=== PATIENT | male | born 1960 | race Caucasian/White ===

== ENCOUNTER 2019-10-30 17:52 | Emergency (ER) | payer BC ==
[2019-10-30] MEDS ORDERED: Ticagrelor 90 MG Tab PO ONE (18:04)
[2019-10-30] MEDS ORDERED: Famotidine 20 MG/2 ML SDV IVPUSH ONE (18:04)
[2019-10-30] MEDS ORDERED: Aspirin 81 MG Tab.Chew CHEW ONE (18:04)
--- NOTE | 2019-10-30 18:04 | EDM.PDOC ---
ED HPI GENERAL MEDICAL PROBLEM - General Chief Complaint: Cardiovascular Problem Stated Complaint: chest pressure Time Seen by Provider: 10/30/19 18:00 Source of Information: Reports: Patient, Family (), Old Records ([facility] chart/EMR) History Limitations: Reports: No Limitations - History of Present Illness INITIAL COMMENTS - FREE TEXT/NARRATIVE: The patient was brought to the emergency room via private automobile by his for evaluation of 3/10 retrosternal chest pressure, which did wake him up from sleep at about 15:00 hours. He has not taken any medications for his symptoms to this point. He did feel some mild dizziness at about 04:00 A.M. this morning, however no chest pain at that time. The patient denies any heart flutter, orthostasis, orthopnea, diaphoresis, paresthesias, recent decreased exercise tolerance, or any other anginal-type symptoms. He denies any radiation of his chest discomfort. No recent history of abdominal pain, heartburn, nausea, diarrhea, melena, gross hematochezia, or any food intolerance, including fatty foods, etc.. The patient also denies any recent fever, cough, wheezing, dyspnea, etc.. Onset: Today, Sudden Onset Date: 10/30/19 Onset Time: 15:00 Duration: Constant Location: Reports: Chest. Denies: Head, Face, Neck, Abdomen, Back, Pelvis, Upper Extremity, Left, Upper Extremity, Right, Radiates to Quality: Reports: Pressure Severity: Mild Improves with: Reports: None Worsens with: Reports: None Context: Reports: Other (As above). Denies: Sick Contact, Trauma Associated Symptoms: Reports: Chest Pain. Denies: Confusion, Cough, Diaphoresis, Fever/Chills, Headaches, Loss of Appetite, Malaise, Nausea/Vomiting, Seizure, Shortness of Breath, Syncope, Weakness Treatments DEVELOPMENT INTERN: Reports: Other (see below) (None) Upper Chest Pain Score (Numeric/FACES): 3 - Related Data Allergies Allergy/AdvReac Type Severity Reaction Status Date / Time bacitracin Allergy Rash Verified 09/07/14 16:31 [From Neosporin ([id number])] bacitracin zinc Allergy Rash Verified 09/07/14 16:31 [From Neosporin ([id number])] neomycin sulfate Allergy Rash Verified 09/07/14 16:31 [From Neosporin ([id number])] polymyxin B Allergy Rash Verified 09/07/14 16:31 [From Neosporin ([id number])] Home Meds: Home Meds . [No Known Home Meds] 09/07/14 [History] Past Medical History HEENT History: Reports: None. Denies: Allergic Rhinitis, Cataract, Glaucoma, Hard of Hearing, Impaired Vision, Macular Degeneration, Otitis Media, Retinal Detachment Cardiovascular History: Reports: None, Other (See Below). Denies: Afib, Aneurysm, Arrhythmia, Blood Clots/VTE/DVT, CAD, Cardiomyopathy, Heart Failure, Heart Murmur, High Cholesterol, Hypertension, AZ, PVD, Syncope Other Cardiovascular History: He does not know his cholesterol status. Respiratory History: Reports: None. Denies: Asthma, Bronchitis, Recurrent, COPD, Intubation, Previous, PE, Pneumonia, Recurrent, Pneumothorax, Sleep Apnea, TB Gastrointestinal History: Reports: None. Denies: Celiac Disease, Cholelithiasis, Chronic Constipation, Chronic Diarrhea, Fecal Incontinence, Gastritis, GERD, GI Bleed, Hepatitis, Inflammatory Bowel Disease, Irritable Bowel Syndrome, Jaundice, Pancreatitis Genitourinary History: Reports: None. Denies: Acute Renal Failure, BPH, Chronic Renal Insuffiency, Renal Calculus, STD, Urinary Incontinence, UTI, Recurrent Musculoskeletal History: Reports: Fracture, Other (See Below). Denies: Arthritis, Back Pain, Chronic, Gout, Neck Pain, Chronic, Osteoarthritis, RA, SLE Other Musculoskeletal History: Comminuted left tibial and fibular fractures at age 20. Neurological History: Reports: None, Headaches, Chronic. Denies: Cerebral Aneurysms, Concussion, CVA, Head Trauma, Migraines, MS, Neuropathy, Peripheral, Parkinson's, Seizure, TIA Psychiatric History: Reports: None. Denies: Abuse, Victim of, ADD, ADHD, Addiction, Anxiety, Depression, Psych Hospitalization(s), PTSD, Suicide Attempt, Suicidal Ideation Endocrine/Metabolic History: Reports: Obesity/BMI 30+. Denies: Diabetes, Type I, Diabetes, Type II, Diabetes Mellitus, Type 3c, Hypothyroidism, IDDM Hematologic History: Reports: None. Denies: Anemia, Blood Transfusion(s), Iron Deficiency Immunologic History: Reports: None. Denies: AIDS, HIV, SLE Oncologic (Cancer) History: Reports: None. Denies: Basal Cell Carcinoma, Colon, Hodgkin's Lymphoma, Malignant Melanoma, Non-Hodgkin's Lymphoma, Prostate, Squamous Cell Carcinoma Dermatologic History: Reports: Eczema. Denies: Psoriasis - Infectious Disease History Infectious Disease History: Reports: Chicken Pox, Measles, Mumps. Denies: C- Difficile, Meningitis, Mononucleosis, MRSA, Pertussis (Whooping Cough), Rheumatic Fever, Rubella, Scarlet Fever, Shingles, TB, VRE - Past Surgical History Head Surgeries/Procedures: Reports: None HEENT Surgical History: Reports: Adenoidectomy, LASIK, Oral Surgery, Tonsillectomy, Other (See Below). Denies: Cataract Surgery, Eye Surgery, Laser Surgery, Myringotomy w Tube(s), Naso-Sinus Surgery Other HEENT Surgeries/Procedures: Tonsillectomy and adenoidectomy at about 25 years of age. Complete teeth extraction with complete dentures uppers and lowers. LASIK in 2018. Cardiovascular Surgical History: Reports: None. Denies: Varicose Respiratory Surgical History: Reports: None. Denies: Thoracentesis GI Surgical History: Reports: None. Denies: Appendectomy, Cholecystectomy, Colonoscopy, EGD, Hernia, Abdominal, Hernia, Inguinal, Hernia Repair/Other Male Surgical History: Reports: Circumcision, Vasectomy, Other (See Below) Other Male Surgeries/Procedures: Circumcision as an and vasectomy in about 2011. Endocrine Surgical History: Reports: None. Denies: Thyroid Biopsy Neurological Surgical History: Reports: None. Denies: C-Spine, Discectomy, Laminectomy, Lumbar Spine, Sacral Spine, Spinal Fusion, Thoracic Spine, Vertebroplasty Musculoskeletal Surgical History: Reports: Arthroscopic Procedure, Shoulder Surgery, Other (See Below). Denies: Carpal Tunnel, Ganglion Cyst, Joint Replacement, ORIF Other Musculoskeletal Surgeries/Procedures:: Arthroscopic rotator cuff repair of the left shoulder in about 2008. Oncologic Surgical History: Reports: None Dermatological Surgical History: Reports: None - Past Imaging History Past Imaging History: Reports: None. Denies: Angiography, Cardiac Echo, Holter Monitor, Stress Testing Social & Family History - Family History HEENT: Reports: None. Denies: Glaucoma, Macular Degeneration, Retinal Detachment Cardiac: Reports: CAD, AZ, Other (See Below). Denies: Afib, AICD, Aneurysm, Arrhythmia, Blood Clots/VTE/DVT, Cardiomyopathy, Heart Failure, Heart Murmur, High Cholesterol, Hypertension, PVD/COD, Syncope Other Cardiac Family History: Father with AZ in his 70s at time of upper GI bleed from stomach cancer. Respiratory: Reports: None. Denies: Asthma, COPD, PE, Pneumothorax, Sleep Apnea GI: Reports: GI bleed, Other (See Below). Denies: Celiac Disease, Cholelithiasis, Colon Polyps, Diverticulitis, GERD, Inflammatory Bowel Disease, Irritable Bowel Syndrome, PUD Other GI Family History: Father with GI bleed secondary to stomach cancer as above. : Reports: None. Denies: Dialysis, Renal Calculus, Renal Disease/Insufficiency OBGYN: Reports: None. Denies: Endometriosis, Recurrent Spontaneous Musculoskeletal: Reports: None. Denies: Arthritis, Gout, RA, SLE Neurological: Reports: None. Denies: Alzheimers Disease, CVA, Dementia, Migraines, MS, Parkinson's, Seizure, TIA Psychiatric: Reports: None. Denies: Abuse, Victim of, ADD, ADHD, Anxiety, Depression, Psych Hospitalization(s), PTSD, Suicide Attempt Endocrine/Metabolic: Reports: None. Denies: Diabetes, Type I, Diabetes, type II, Diabetes Mellitus, Type 3c, Hypothyroidism, IDDM Hematologic: Reports: None. Denies: Anemia, SLE Immunologic: Reports: None. Denies: AIDS, HIV, SLE Dermatologic: Reports: None. Denies: Eczema, Psoriasis Oncologic: Reports: Other (See Below). Denies: Colon, Hodgkin's Lymphoma, Leukemia, Lung, Lymphoma, Non-Hodgkin's Lymphoma, Prostate, Skin Other Oncologic Family History: Father with fatal stomach cancer secondary to upper GI bleed in his 70s. - Tobacco Use Smoking Status *Q: Former Smoker Tobacco Use Within Last Twelve Months: Cigarettes Years of Tobacco use: 30 Packs/Tins Daily: 0.8 Packs/Tins Daily Comment: Smoked between ages 23 and 53. Used Tobacco, but Quit: Yes Smoking Cessation Information Provided To Patient: No Second Hand Smoke Exposure: No Second Hand Smoke Education Provided: No - Caffeine Use Caffeine Use: Reports: Coffee (23 cups per week), Soda (23 sodas per day), Other (2 cups per month). Denies: Energy Drinks (One can monthly) - Alcohol Use Alcohol Use History: Yes Days Per Week of Alcohol Use: 3 Number of Drinks Per Day: 1 Number of Drinks Per Day Comment: Usually beer or mixed drinks. No previous DW Is, problems with alcohol abuse, etc. Total Drinks Per Week: 3 Alcohol Use in Last Twelve Months: Yes - Recreational Drug Use Recreational Drug Use: No Drug Use in Last 12 Months: No Recreational Drug Type: Denies: Amphetamines (Speed), Cocaine, Heroin, Inhalants (Glues, Solvents, Aerosols), LSD (Acid), Methamphetamine, Morphine, Oxycodone - Living Situation & Occupation Living situation: Reports: (Third and 2018 with no children from this relationship.), ( 2 no children from those relationships.), with Family () Occupation: Employed ([employer]) ED ROS GENERAL - Review of Systems Review Of Systems: Comprehensive ROS is negative, except as noted in HPI. ED EXAM, GENERAL - Physical Exam Exam: See Below Exam Limited By: No Limitations General Appearance: Alert, WD/WN, No Apparent Distress Eye Exam: Bilateral Eye: EOMI, Normal Inspection (No nystagmus), PERRL Ears: Normal External Exam, Normal Canal, Hearing Grossly Normal, Normal TMs Nose: Normal Inspection, Normal Mucosa, No Blood Throat/Mouth: Normal Inspection, Normal Lips, Normal Teeth (Complete dentures uppers and lowers), Normal Gums, Normal Oropharynx, Normal Voice, No Airway Compromise. No: Dysphagia, Perioral Cyanosis Head: Atraumatic, Normocephalic. No: Facial Swelling, Facial Tenderness, Sinus Tenderness Neck: Normal Inspection, Supple, Non-Tender, Full Range of Motion. No: Carotid Bruit, Lymphadenopathy (L), Lymphadenopathy (R), Thyromegaly Respiratory/Chest: No Respiratory Distress, Lungs Clear, Normal Breath Sounds, No Accessory Muscle Use, Chest Non-Tender. No: Pleural Rub, Retractions Cardiovascular: Normal Peripheral Pulses, Regular Rate, Rhythm, No Edema, No Gallop, No JVD, No Murmur, No Rub, Bradycardia (Occasional by monitor). No: Gallop/S3, Gallop/S4, Friction Rub Peripheral Pulses: 2+: Radial (L), Radial (R), Dorsalis Pedis (L), Dorsalis Pedis (R) GI/Abdominal: Normal Bowel Sounds, Soft, Non-Tender, No Organomegaly, No Distention, No Abnormal Bruit, No Mass, Pelvis Stable, Other (obese). No: Guarding (Male) Exam: Deferred Rectal (Males) Exam: Deferred Back Exam: Normal Inspection, Full Range of Motion. No: CVA Tenderness (L), CVA Tenderness (R), Muscle Spasm Extremities: Normal Inspection, Normal Range of Motion, Non-Tender, No Pedal Edema, Normal Capillary Refill. No: Tony's Sign Neurological: Alert, Oriented, CN II-XII Intact, Normal Cognition, Normal Gait, Normal Reflexes (Negative Babinski's), No Motor/Sensory Deficits Psychiatric: Normal Affect, Normal Mood Skin Exam: Warm, Dry, Intact, Normal Color, No Rash, Tattoo(s). No: Diaphoretic, Wound/Incision Lymphatic: No Adenopathy EKG INTERPRETATION EKG Date: 10/30/19 Time: 17:57 Rhythm: NSR Rate (Beats/Min): 61 [place]: Normal (Left cardiac axis) P-Wave: Present QRS: Normal (0.09 seconds with mild repolarization changes) ST-T: Other (T-wave inversion in leads 3, possibly leads aVF, and V1 through V4) QT: Normal AL/PQ Interval: 0.16 seconds with poor R-wave progression in the anterior leads Comparison: NA - No Prior EKG EKG Interpretation Comments: 1. Anterior wall cardiac ischemia with possible inferior component 2. Repolarization changes Repeat EKG at 19:34 hours showed progression of his T-wave inversions, including increased prominence of T-wave inversions in leads 3 and aVF with progression of his anterior T-wave inversion now in leads V1 through V5. Progressive diffuse cardiac ischemia, including inferior and anterolateral.. Course - Vital Signs Last Recorded V/S: Last Vital Signs Temp 36.4 C 10/30/19 18:18 Pulse 55 L 10/30/19 20:50 Resp 18 10/30/19 20:50 BP 139/75 10/30/19 20:50 Pulse Ox 97 10/30/19 20:50 Vital Signs - 24 hr 10/30/19 10/30/19 10/30/19 18:03 18:17 18:18 Temperature [ 36.4 C Oral] Pulse, 63 60 60 Peripheral [ Right Pulse Oximetry] Respiratory 14 16 Rate Blood Pressure Blood Pressure 134/80 141/87 H 142/87 H [Left Upper Arm ] O2 Sat by Pulse 98 99 98 Oximetry 10/30/19 10/30/19 10/30/19 18:27 18:35 18:40 Temperature [ Oral] Pulse, 58 L 56 L Peripheral [ Right Pulse Oximetry] Respiratory 22 H 22 H Rate Blood Pressure 141/87 H Blood Pressure 113/72 115/73 [Left Upper Arm ] O2 Sat by Pulse 95 96 Oximetry 10/30/19 18:45 Temperature [ Oral] Pulse, 56 L Peripheral [ Right Pulse Oximetry] Respiratory 13 Rate Blood Pressure Blood Pressure 119/78 [Left Upper Arm ] O2 Sat by Pulse 97 Oximetry - Orders/Labs/Meds Orders: Active Orders 24 hr Category Date Time Status Cardiac Monitoring [RC] . DIRECTED Care 10/30/19 18:04 Active EKG Documentation Completion [RC] ASDIRECTED Care 10/30/19 18:04 Active Oxygen Therapy, ED [RC] PRN Care 10/30/19 18:04 Active Peripheral IV Care [RC] . DIRECTED Care 10/30/19 18:04 Active Pulse Oximetry [RC] CONTINUOUS Care 10/30/19 18:04 Active Up With Assistance [RC] PFP Care 10/30/19 18:04 Active Vital Signs [RC] PFP Care 10/30/19 18:04 Active Nothing per Oral Now Diet [DIET] Diet 10/30/19 Breakfast Active Chest 1V Frontal [CR] Stat Exams 10/30/19 18:04 Taken Nitroglycerin [Nitrostat] Med 10/30/19 18:23 Stat 0.4 mg SL ONETIME STA Sodium Chloride 0.9% [Saline Flush] Med 10/30/19 18:04 Active 10 ml FLUSH ASDIRECTED PRN Obtain Past Medical Record [OM.PC] Urgent Oth 10/30/19 18:04 Active Peripheral IV Insertion Adult [OM.PC] Stat Oth 10/30/19 18:04 Ordered Resuscitation Status Stat Resus Stat 10/30/19 18:04 Ordered Medication Orders Heparin Sodium/Sodium Chloride (Heparin 25,000 Units In 1/2 Ns 500 Ml) 500 mls @ 25.038 mls/hr IV TITRATE ATMARA; Protocol Last Admin: 10/30/19 19:53 Dose: 12 units/kg/hr, 25.038 mls/hr Documented by: LILIBETH Davies by: EAMON Sodium Chloride (Normal Saline) 1,000 mls @ 30 mls/hr IV ASDIRECTED [facility] Last Admin: 10/30/19 20:15 Dose: 30 mls/hr Documented by: Infusion: 10/30/19 20:15 Dose: 30 mls/hr Documented by: Admin: 10/30/19 19:58 Dose: 30 mls/hr Documented by: LILIBETH Nitroglycerin/Dextrose (Nitroglycerin 25 Mg/D5w 250 Ml) 25 mg in 250 mls @ 6 mls/hr IV TITRATE [facility] Last Admin: 10/30/19 20:16 Dose: 10 mcg/min, 6 mls/hr Documented by: LILIBETH Sodium Chloride (Normal Saline) 1,000 mls @ 30 mls/hr IV ASDIRECTED [facility] Nitroglycerin (Nitrostat) 0.4 mg SL ONETIME STA Stop: 10/31/19 18:24 Last Admin: 10/30/19 18:27 Dose: 0.4 mg Documented by: RAISA Sodium Chloride (Saline Flush) 10 ml FLUSH ASDIRECTED PRN PRN Reason: Keep Vein Open Last Admin: 10/30/19 19:55 Dose: 10 ml Documented by: Admin: 10/30/19 19:17 Dose: 10 ml Documented by: Admin: 10/30/19 18:15 Dose: 10 ml Documented by: KYLEIGHICALI Sodium Chloride (Saline Flush) 10 ml FLUSH ASDIRECTED PRN PRN Reason: Keep Vein Open Labs: Laboratory Tests 10/30/19 10/30/19 10/30/19 Range/Units 18:00 18:00 18:00 WBC 7.5 (4.0-10.2) K/uL RBC 4.51 (4.33-5.41) M/uL Hgb 14.1 (13.1-16.8) g/dL Hct 41.8 (39.0-49.0) % MCV 92.7 (84.0-98.0) fL MCH 31.3 (28.2-33.3) pg MCHC 33.7 (31.7-36.0) g/dL RDW 13.2 (11.2-14.1) % Plt Count 201 (150-350) K/uL Neut % (Auto) 58.3 (45.0-80.0) % Lymph % (Auto) 27.3 (10.0-50.0) % [place] % (Auto) 10.5 (2.0-14.0) % Eos % (Auto) 3.2 (0.0-5.0) % Baso % (Auto) 0.7 (0.0-2.0) % Neut # (Auto) 4.39 (1.40-7.00) K/uL Lymph # (Auto) 2.05 (0.50-3.50) K/uL [place] # (Auto) 0.79 (0.00-1.00) K/uL Eos # (Auto) 0.24 (0.00-0.50) K/uL Baso # (Auto) 0.05 (0.00-0.20) K/uL PT 10.4 (9.5-12.0) SEC INR 1.0 APTT 26.2 (24.5-32.8) SEC D-Dimer, Quantitative < 100 (0-400) ng/mL Sodium (136-145) mmol/L Potassium (3.5-5.1) mmol/L Chloride (98-107) mmol/L Carbon Dioxide (21.0-32.0) mmol/L BUN (7-18) mg/dL Creatinine (0.51-1.17) mg/dL Est Cr Clr Drug Dosing mL/min Estimated GFR (MDRD) mL/min Glucose (74-106) mg/dL Lactic Acid (0.4-2.0) mmol/L Uric Acid (2.6-7.2) mg/dL Calcium (8.5-10.1) mg/dL Magnesium (1.8-2.4) mg/dL Total Bilirubin (0.2-1.0) mg/dL AST (15-37) U/L ALT (12-78) U/L Alkaline Phosphatase (46-116) IU/L Creatine Kinase (26-308) U/L Creatine Kinase Index (0.0-2.5) % CK-MB (CK-2) (0.00-3.60) ng/mL Troponin I (0.000-0.056) ng/mL NT-Pro-B Natriuret Pep (0-125) pg/mL Total Protein (6.4-8.2) g/dL Albumin (3.4-5.0) g/dL TSH, Ultra Sensitive (0.358-3.740) mIU/mL 10/30/19 10/30/19 Range/Units 18:00 18:00 WBC (4.0-10.2) K/uL RBC (4.33-5.41) M/uL Hgb (13.1-16.8) g/dL Hct (39.0-49.0) % MCV (84.0-98.0) fL MCH (28.2-33.3) pg MCHC (31.7-36.0) g/dL RDW (11.2-14.1) % Plt Count (150-350) K/uL Neut % (Auto) (45.0-80.0) % Lymph % (Auto) (10.0-50.0) % [place] % (Auto) (2.0-14.0) % Eos % (Auto) (0.0-5.0) % Baso % (Auto) (0.0-2.0) % Neut # (Auto) (1.40-7.00) K/uL Lymph # (Auto) (0.50-3.50) K/uL [place] # (Auto) (0.00-1.00) K/uL Eos # (Auto) (0.00-0.50) K/uL Baso # (Auto) (0.00-0.20) K/uL PT (9.5-12.0) SEC INR APTT (24.5-32.8) SEC D-Dimer, Quantitative (0-400) ng/mL Sodium 140 (136-145) mmol/L Potassium 4.2 (3.5-5.1) mmol/L Chloride 104 (98-107) mmol/L Carbon Dioxide 25.3 (21.0-32.0) mmol/L BUN 17 (7-18) mg/dL Creatinine 1.04 (0.51-1.17) mg/dL Est Cr Clr Drug Dosing 78.37 mL/min Estimated GFR (MDRD) > 60 mL/min Glucose 108 H (74-106) mg/dL Lactic Acid 1.3 (0.4-2.0) mmol/L Uric Acid 5.4 (2.6-7.2) mg/dL Calcium 8.7 (8.5-10.1) mg/dL Magnesium 1.7 L (1.8-2.4) mg/dL Total Bilirubin 0.5 (0.2-1.0) mg/dL AST 17 (15-37) U/L ALT 28 (12-78) U/L Alkaline Phosphatase 59 (46-116) IU/L Creatine Kinase 151 (26-308) U/L Creatine Kinase Index 1.4 (0.0-2.5) % CK-MB (CK-2) 2.10 (0.00-3.60) ng/mL Troponin I 0.000 (0.000-0.056) ng/mL NT-Pro-B Natriuret Pep 27 (0-125) pg/mL Total Protein 7.1 (6.4-8.2) g/dL Albumin 3.9 (3.4-5.0) g/dL TSH, Ultra Sensitive 1.820 (0.358-3.740) mIU/mL Meds: Medications Generic Name Dose Route Start Last Admin Trade Name Mike PRN Reason Stop Dose Admin Heparin Sodium/Sodium Chloride 500 mls @ 25.038 mls/hr 10/30/19 20:00 10/30/19 19:53 Heparin 25,000 Units In 1/2 Ns 500 Ml IV 12 units/kg/hr TITRATE TAMARA 25.038 mls/hr Administration Protocol 12 UNITS/KG/HR Sodium Chloride 1,000 mls @ 30 mls/hr 10/30/19 20:00 10/30/19 20:15 Normal Saline IV 30 mls/hr ASDIRECTED TAMARA Administration Nitroglycerin/Dextrose 25 mg in 250 mls @ 6 mls/hr 10/30/19 20:00 10/30/19 20:16 Nitroglycerin 25 Mg/D5w 250 Ml IV 10 mcg/min TITRATE TAMARA 6 mls/hr Administration 10 MCG/MIN Sodium Chloride 1,000 mls @ 30 mls/hr 10/30/19 20:00 Normal Saline IV ASDIRECTED TAMARA Nitroglycerin 0.4 mg 10/30/19 18:23 10/30/19 18:27 Nitrostat SL 10/31/19 18:24 0.4 mg ONETIME STA Administration Sodium Chloride 10 ml 10/30/19 18:04 10/30/19 19:55 Saline Flush FLUSH 10 ml ASDIRECTED PRN Administration Keep Vein Open Sodium Chloride 10 ml 10/30/19 19:56 Saline Flush FLUSH ASDIRECTED PRN Keep Vein Open Discontinued Medications Generic Name Dose Route Start Last Admin Trade Name Freq PRN Reason Stop Dose Admin Aspirin 324 mg 10/30/19 18:04 10/30/19 18:09 Aspirin CHEW 10/30/19 18:05 324 mg ONETIME ONE Administration Famotidine 40 mg 10/30/19 18:04 10/30/19 18:11 Pepcid IVPUSH 10/30/19 18:05 40 mg ONETIME ONE Administration Heparin Sodium (Porcine) 4,000 units 10/30/19 19:48 10/30/19 19:52 Heparin Sodium IVPUSH 10/30/19 19:49 4,000 units ONETIME ONE Administration Morphine Sulfate 2 mg 10/30/19 18:36 10/30/19 18:40 Morphine IVPUSH 10/30/19 18:37 2 mg ONETIME ONE Administration Morphine Sulfate 2 mg 10/30/19 19:12 10/30/19 19:16 Morphine IVPUSH 10/30/19 19:13 2 mg ONETIME ONE Administration Ondansetron HCl 4 mg 10/30/19 18:36 10/30/19 18:39 Zofran IVPUSH 10/30/19 18:37 4 mg ONETIME ONE Administration Ticagrelor 180 mg 10/30/19 18:04 10/30/19 18:11 Brilinta PO 10/30/19 18:05 180 mg ONETIME ONE Administration - Radiology Interpretation Free Text/Narrative:: Valve Grinder shows normal sinus rhythm with average heart rate in the low 60s with heart rate ranging from 53 to the 70s with no ectopy or arrhythmia. Chest x-ray, portable, shows borderline pulmonary obstructive disease with possible pulmonary hypertension but no cardiomegaly, CHF, pulmonary infiltrates, pneumothorax, etc. Departure - Departure Time of Disposition: 20:57 Disposition: DC/Tfer to Acute Hospital 02 Condition: Good Clinical Impression: Hypomagnesemia, Bradycardia Chest pain Qualifiers: Chest pain type: precordial pain Qualified Code(s): R07.2 - Precordial pain Osteoarthritis Qualifiers: Osteoarthritis location: multiple joints Osteoarthritis type: primary Qualified Code(s): M89.49 - Other hypertrophic osteoarthropathy, multiple sites Sepsis Event Note (ED) - Focused Exam Vital Signs: Vital Signs Temp Pulse Resp BP BP Pulse Ox 10/30/19 18:45 56 L 13 119/78 97 10/30/19 18:40 56 L 22 H 115/73 96 10/30/19 18:35 58 L 22 H 113/72 95 10/30/19 18:27 141/87 H 10/30/19 18:18 36.4 C 60 16 142/87 H 98 10/30/19 18:17 60 141/87 H 99 10/30/19 18:03 63 14 134/80 98 - Problem List & Annotations (1) Chest pain SNOMED Code(s): 49640416 Code(s): R07.9 - CHEST PAIN, UNSPECIFIED Status: Acute Priority: High Current Visit: No Onset Date: 10/30/19 Annotation/Comment:: Patient's symptoms did initially improve to 12/10 with aggressive treatment as above, however subsequent returned increasing refractory chest pressure with repeat EKG showing progressive multivessel ischemia as above. IV heparin therapy initiated including IV bolus and IV infusion as per standard non-STEMI protocol. Subsequent telephone consultation at 19:[address] Rodriguez, hospitalist at [facility] in [place], who does agree to accept the patient for further treatment and evaluation. He is in agreement with my treatment plan of initiating IV nitroglycerin infusion at 10 mcg/min initially with no other treatment recommendations given. Ambulance transfer with ad trafficker accompaniment. Chest pain protocol was initiated immediately upon patient's arrival to the emergency room. Recommend Glycosylated hemoglobin and fasting lipid profile in the a.m. by accepting providers. Note that the patient previously has had limited preventative healthcare with consideration of screening colonoscopy, updated yearly blood work, etc. once his cardiac status has been determined/improved. [facility] work excuse completed notifying them of patient's transfer with the patient also provided a blank [employer] work excuse for the accepting providers. Qualifiers: Chest pain type: precordial pain Qualified Code(s): R07.2 - Precordial pain (2) Bradycardia SNOMED Code(s): 06157359 Code(s): R00.1 - BRADYCARDIA, UNSPECIFIED Status: Acute Priority: High Current Visit: No Onset Date: 10/30/19 Annotation/Comment:: No previous beta kathi therapy or beta blockers given in the emergency room. Note occasional mild bradycardia possibly secondary to inferior wall ischemia. Continue to observe closely. (3) Hypomagnesemia SNOMED Code(s): 947024353 Code(s): E83.42 - HYPOMAGNESEMIA Status: Acute Priority: Medium Current Visit: No Onset Date: 10/30/19 Annotation/Comment:: Consider initiation of magnesium supplementation by accepting providers. (4) Osteoarthritis SNOMED Code(s): 850811453 Code(s): M19.90 - UNSPECIFIED OSTEOARTHRITIS, UNSPECIFIED SITE Status: Chronic Priority: Medium Current Visit: No Annotation/Comment:: Stable by history Qualifiers: Osteoarthritis location: multiple joints Osteoarthritis type: primary Qualified Code(s): M89.49 - Other hypertrophic osteoarthropathy, multiple sites - Problem List Review Problem List Initiated/Reviewed/Updated: Yes - My Orders Last 24 Hours: My Active Orders 10/30/19 Breakfast Nothing per Oral Now Diet [DIET] 10/30/19 18:04 Cardiac Monitoring [RC] . DIRECTED EKG Documentation Completion [RC] ASDIRECTED Oxygen Therapy, ED [RC] PRN Peripheral IV Care [RC] . DIRECTED Pulse Oximetry [RC] CONTINUOUS Up With Assistance [RC] PFP Vital Signs [RC] PFP Chest 1V Frontal [CR] Stat Sodium Chloride 0.9% [Saline Flush] 10 ml FLUSH ASDIRECTED PRN Obtain Past Medical Record [OM.PC] Urgent Peripheral IV Insertion Adult [OM.PC] Stat Resuscitation Status Stat 10/30/19 18:23 Nitroglycerin [Nitrostat] 0.4 mg SL ONETIME STA - Assessment/Plan Admission H&P: Please use this note as an admission H&P Last 24 Hours: My Active Orders 10/30/19 Breakfast Nothing per Oral Now Diet [DIET] 10/30/19 18:04 Cardiac Monitoring [RC] . DIRECTED EKG Documentation Completion [RC] ASDIRECTED Oxygen Therapy, ED [RC] PRN Peripheral IV Care [RC] . DIRECTED Pulse Oximetry [RC] CONTINUOUS Up With Assistance [RC] PFP Vital Signs [RC] PFP Chest 1V Frontal [CR] Stat Sodium Chloride 0.9% [Saline Flush] 10 ml FLUSH ASDIRECTED PRN Obtain Past Medical Record [OM.PC] Urgent Peripheral IV Insertion Adult [OM.PC] Stat Resuscitation Status Stat 10/30/19 18:23 Nitroglycerin [Nitrostat] 0.4 mg SL ONETIME STA Assessment:: As above Plan: As above. Extensive precautions were given to the patient and his , who are in agreement with the treatment plan. Note that initially plans had been made to place the patient in observation status in our facility with standard rule out [place] orders. Secondary to refractory chest pain and progressive EKG changes transfer was warranted, however. Physical exam and vital signs were stable at discharge with improved chest pain to 1/10 at time of transfer. Ambulance transfer with ad trafficker accompaniment as above.
[2019-10-30] MEDS: Sodium Chloride 0.9% 10 ML Syringe FLUSH PRN ×3 (18:15→19:55)
[2019-10-30] MEDS ORDERED: Nitroglycerin 0.4 MG Tab.SL SL STA (18:23)
[2019-10-30 18:35] LABS: PTT,PARTIAL THROMBOPLSTIN TIME 26.2 SEC (24.5-32.8)
[2019-10-30] MEDS ORDERED: Morphine 2 MG/ML Syringe IVPUSH ONE ×2 (18:36→19:12)
[2019-10-30] MEDS ORDERED: Ondansetron 4 MG/2 ML SDV IVPUSH ONE (18:36)
[2019-10-30 18:40] LABS: CHLORIDE,CL 104 mmol/L (98-107); SODIUM,NA 140 mmol/L (136-145)
[2019-10-30] MEDS ORDERED: Heparin Sodium 5,000 Units/ML Vial IVPUSH ONE (19:48)
[2019-10-30] MEDS ORDERED: Sodium Chloride 0.9% 10 ML Syringe FLUSH PRN (19:56)
[2019-10-30] MEDS: Sodium Chloride 0.9% 1,000 ML IV SCH ×2 (19:58→20:15)
[2019-10-30] MEDS ORDERED: Sodium Chloride 0.9% 1,000 ML IV SCH (20:00)
[2019-10-30] MEDS ORDERED: Heparin Sodium/0.45% NaCl 500 ML IV SCH (20:00)
[2019-10-30] MEDS ORDERED: Nitroglycerin/D5W 25 MG/250 ML BOTTLE IV SCH (20:00)
[2019-10-30 21:02] VITALS: BP 139/75; PULSE 55
== END 2019-10-30 20:57 ==
LOC: LL.ED 17:52 → UNDOADMOB 18:58 → LL.MS 18:58 → LL.ED 20:57
DX: R07.2 Precordial pain (principal); E83.42 Hypomagnesemia; R00.1 Bradycardia, unspecified; M89.49 Other hypertrophic osteoarthropathy, multiple sites; E66.9 Obesity, unspecified; Z87.891 Personal history of nicotine dependence; Z68.34 Body mass index [BMI] 34.0-34.9, adult; Z88.1 Allergy status to other antibiotic agents
CPT/HCPCS: 36415; 71045; 80053; 82550; 82553; 83605; 83735; 83880; 84443; 84484; 84550; 85025; 85379; 85610; 85730; 93005; 96365; 96368; 96375; 96376; 99285-25; A9270-GY; J1644; J2270; J2405; J3490; J7030

== ENCOUNTER 2024-10-03 07:48 | Emergency (ER) | payer BC ==
[2024-10-03 08:11] LABS: BASOPHILS ABSOLUTE AUTO 0.03 K/uL (0.00-0.20); BASOPHILS PERCENT AUTO 0.4 % (0.0-2.0); EOSINOPHILS ABSOLUTE AUTO 0.18 K/uL (0.00-0.50); EOSINOPHILS PERCENT AUTO 2.3 % (0.0-5.0); HEMATOCRIT 43.5 % (39.0-49.0); HEMOGLOBIN 15.3 g/dL (13.1-16.8); IMMATURE GRAN ABSOLUTE AUTO 0.01 10^3/uL (0.00-0.04); IMMATURE GRAN PERCENT AUTO 0.1 % (0.0-0.4); LYMPHOCYTES ABSOLUTE AUTO 1.44 K/uL (0.50-3.50); LYMPHOCYTES PERCENT AUTO 18.8 % (10.0-50.0); MEAN CORPUSCULAR HEMOGLOBIN 32.2 pg (28.2-33.3); MEAN CORPUSCULAR HGB CONC 35.2 g/dL (31.7-36.0); MEAN CORPUSCULAR VOLUME 91.6 fL (84.0-98.0); MONOCYTES ABSOLUTE AUTO 0.64 K/uL (0.00-1.00); MONOCYTES PERCENT AUTO 8.4 % (2.0-14.0); NEUTROPHILS ABSOLUTE AUTO 5.36 K/uL (1.40-7.00); PLATELET COUNT,PLT 208 K/uL (150-350); RED BLOOD CELL COUNT 4.75 M/uL (4.33-5.41); RED CELL DISTRIBUTION WIDTH 12.5 % (11.2-14.1); WHITE BLOOD CELL COUNT,WBC 7.7 K/uL (4.0-10.2)
[2024-10-03] MEDS: Lidocaine 2% Viscous Solution 15 ML UD PO ONE (08:11)
[2024-10-03] MEDS: Aluminum Hydroxide/Magnesium Hydroxide/Simethicone Susp 30 ML Cup PO ONE (08:11)
[2024-10-03 08:17] VITALS: PULSE 66
[2024-10-03 08:30] LABS: PROTHROMBIN TIME 10.1 SEC (9.0-11.1)
[2024-10-03 08:38] LABS: ALBUMIN 3.9 g/dL (3.4-5.0); BILIRUBIN TOTAL 0.6 mg/dL (0.2-1.0); CALCIUM 9.1 mg/dL (8.5-10.1); CREATININE 1.23 mg/dL (0.51-1.17); EST CRCL DRUG DOSING (CG) 63.07 mL/min; MAGNESIUM 1.8 mg/dL (1.8-2.4); POTASSIUM,K 4.5 mmol/L (3.5-5.1); PROTEIN TOTAL,TP 7.2 g/dL (6.4-8.2)
[2024-10-03] MEDS: Ketorolac 15 MG/ML SDV IVPUSH ONE (08:52)
[2024-10-03] MEDS: Sodium Chloride 0.9% 10 ML Syringe FLUSH PRN (08:52)
[2024-10-03] MEDS ORDERED: Naloxone 0.4 MG/ML SDV IVPUSH PRN (09:40)
[2024-10-03] MEDS: HYDROmorphone 0.5 MG/0.5 ML Syringe IVPUSH PRN (09:45)
[2024-10-03 11:55] VITALS: BP 148/92
== END 2024-10-03 11:35 | disposition home or self-care (01) ==
LOC: LL.ED 07:48
DX: K80.70 Calculus of gallbladder and bile duct without cholecystitis without obstruction (principal)
CPT/HCPCS: 36415; 71045; 76705; 80053; 83735; 84484; 85025; 85610; 93005; 96374; 96375; 99285-25; A9270-GY; J1885